=== PATIENT | male | born 1950 | race Caucasian/White ===

== ENCOUNTER 2017-06-09 16:41 | Inpatient (IN) | payer OTHER ==
--- NOTE | 2017-06-09 17:00 | EDPHY ---
H & P Stated Complaint: cough/fever/hypoxia Time Seen by Provider: 06/09/17 17:00 - Personal History Current Tetanus/Diphtheria Vaccine: Yes - Medical/Surgical History Hx Asthma: No Hx Chronic Respiratory Disease: No Hx Diabetes: No Hx Cardiac Disease: No Hx Renal Disease: No Hx Cirrhosis: No Hx Alcoholism: No Hx HIV/AIDS: No Hx Splenectomy or Spleen Trauma: No Other PMH: bronchitis - Social History Smoking Status: Never smoked Constitutional: Initial Vital Signs Temperature (C) 37.6 C 06/09/17 16:46 Heart Rate 77 06/09/17 16:46 Respiratory Rate 18 06/09/17 16:46 Blood Pressure 131/77 H 06/09/17 16:46 O2 Sat (%) 86 L 06/09/17 16:46 O2 Delivery Mode Room Air O2 (L/minute) 2 Allergies/Adverse Reactions: No Known Allergies Allergy (Unverified 06/09/17 16:45) Home Medications: Medication Instructions Recorded Acetaminophen [Tylenol 325mg (*)] 650 mg PO Q6 PRN 06/09/17 Albuterol [Proventil Inhaler HFA 1 - 2 puffs IH Q4H 06/09/17 (*)] Aspirin EC [Aspirin EC 81 mg (*)] 81 mg PO HS 06/09/17 Atorvastatin Calcium [Lipitor 20 20 mg PO HS 06/09/17 mg (*)] Azithromycin [Zithromax] 250 mg PO DAILY 06/09/17 Beclomethasone Qvar 80 [Qvar 80 1 puffs IH BIDI 06/09/17 (*)] HYDROcodone BIT/HOMATROP ME-BR 5 ml PO HS PRN 06/09/17 [Hydrocodone-Homatropine Soln] Herbals/Supplements -Info Only 1 ea PO DAILY 06/09/17 Multivitamins [Multivitamin (*)] 1 each PO DAILY 06/09/17 Nasonex 1 spray NASAL DAILY PRN 06/09/17 predniSONE [predniSONE TAPER] 1 each PO .EDIT DOSE INSTRUCT 06/09/17 Medical Decision Making - Diagnostics Imaging Results: Imaging Impressions Chest X-Ray 06/09/17 17:35 Impression: Patchy infiltrate in the right middle and lower lobe suspicious for pneumonia.. Imaging: I viewed and interpreted images myself ED Course/Re-evaluation: CHIEF COMPLAINT: Cough, fever HISTORY OF PRESENT ILLNESS: The patient is a 67 y/o male complaining of a cough and fever onset 5 days ago. Normally when he has a cough he develops bronchitis. Dr. Abraham, his PCP, prescribed him albuterol, azithromycin, prednisone, and Qvar, 3 days ago. His symptoms worsened and his fever spiked to 103 degrees today. He has not had a chest x-ray yet. Denies using home oxygen. Received influenza vaccination this year. No chest pain, abdominal pain, urinary or bowel complaints, numbness. REVIEW OF SYSTEMS: A 10 point review of systems was performed and is negative with the exception of the elements mentioned in the history of present illness. PHYSICAL EXAM: HR, BP, O2 Sat, RR. Temp noted General Appearance: Alert, well hydrated, appropriate, and non-toxic appearing. Head: Atraumatic without scalp tenderness or obvious injury Eyes: Pupils equal, round, reactive to light and accommodation, EOMI, no trauma , no injection. Ears: Clear bilaterally, no perforation, normal landmarks Nose: Atraumatic, no rhinorrhea, clear. Throat: There is no erythema or exudates, no lesions, normal tonsils, mucus membranes moist. Neck: Supple, nontender, no lymphadenopathy. Respiratory: Coarse rhonchi in all [place]. No retractions, no distress, no wheezes, and no accessory muscle use. Cardiovascular: Regular rate and rhythm, no murmurs, rubs, or gallops. Good capillary refill all extremities. Gastrointestinal: Abdomen is soft, nontender, non-distended, no masses, no rebound, no guarding, no peritoneal signs. Musculoskeletal: Normal active ROM of all extremities, atraumatic. Neurological: Alert, appropriate, and interactive. Non-focal neuro Skin: No rashes, good turgor, no nodules on palpation. Past medical history: Bronchitis Past surgical history: Denies Family history: Denies Social history: at bedside, lives in [place], retired DIAGNOSTICS/PROCEDURES/CRITICAL CARE TIME: Chest X-ray: Right middle lobe infiltrate DIFFERENTIAL DIAGNOSIS: The differential diagnosis for the patient's shortness of breath and hypoxemia included but was not limited to pneumonia, myocardial infarction, acute mountain sickness, high altitude pulmonary edema, congestive heart failure, and pulmonary embolus. MEDICAL DECISION MAKING: The patient is a 67 y/o male presenting with hypoxia and a cough, onset 5 days ago. At triage his O2Sats were 86% and on exam he has coarse rhonchi in all lung [place]. Chest X-ray ordered. DuoNeb administered. 1816: Reviewed patient's chest x-ray; there is a right middle lobe infiltrate. Patient is also positive for influenza A. He will need to be admitted for further observation. 182: Reassessed patient and discussed plan for admission; he is comfortable with this plan. 1849: Consulted with hospitalist service, Dr. Lawson accepts admission of this patient. - Data Points Laboratory Results: 06/09/17 17:07 Nasal Influenza A PCR FLU A DETECTED H (NEGATIVE) Nasal Influenza B PCR NEGATIVE FOR FLU B (NEGATIVE) RSV (PCR) NEGATIVE FOR RSV (NEGATIVE) Medications Given: Discontinued Medications Albuterol/Ipratropium (Duoneb) 3 ml IH EDNOW ONE Stop: 06/09/17 17:35 Last Admin: 06/09/17 17:40 Dose: 3 ml Departure - Departure Disposition: [facility] Inpatient Acute Clinical Impression: Influenza A, Hypoxia Condition: Fair Referrals: Parviz Abraham MD [Primary Care Provider] - As per Instructions Report Scribed for: Deandre Delaney Report Scribed by: Esha Dominguez Date of Report: 06/09/17 Time of Report: 17:29
[2017-06-09] MEDS ORDERED: IPRATROPIUM/ALBUTEROL 3 ML DEYVIAL IH ONE (17:34)
[2017-06-09] MEDS ORDERED: IPRATROPIUM/ALBUTEROL 3 ML DEYVIAL ONE (17:35)
[2017-06-09] MEDS ORDERED: ONDANSETRON DISINTEGRATING 4 MG TAB PO PRN (21:51)
[2017-06-09] MEDS ORDERED: ALBUTEROL 3 ML DEYVIAL IH PRN (21:51)
[2017-06-09] MEDS ORDERED: ACETAMINOPHEN 325 MG TAB PO PRN (21:51)
[2017-06-09] MEDS ORDERED: ONDANSETRON 4 MG/2 ML VIAL IVP PRN (21:51)
[2017-06-09] MEDS ORDERED: HYDROCODONE/HOMATROPINE HYCODAN 5 ML UDL PO PRN (21:53)
[2017-06-09] MEDS ORDERED: FLUTICASONE NASAL 120 SPRAYS/16 GM MDI EACHNARE PRN (21:53)
[2017-06-09] MEDS ORDERED: HYDROCODONE PO PRN (21:53)
[2017-06-09] MEDS ORDERED: HOMATROPINE PO PRN (21:53)
[2017-06-09] MEDS ORDERED: predniSONE 20 MG TAB PO ONE (22:01)
[2017-06-09] MEDS: guaiFENesin 600 MG TAB.ER PO SCH (22:31)
[2017-06-09] MEDS: OSELTAMIVIR PHOSPHATE 75 MG CAP PO SCH (22:33)
--- NOTE | 2017-06-09 22:36 | PDGENHP ---
History and Physical - Chief Complaint cough, fever - History of Present Illness 67 yo male with h/o RAD presents to ED with cough, wheezing, SOB and fever. His symptoms started 5 days [employer]. He saw his PCP and was started on QVAR, Albuterol, oral Prednisone 40 mg x1 day, then 20 mg daily (current dose), along with Azithromycin. He reports getting bronchitis and wheezing when he has a viral URI. No tobacco history or h/o asthma. He felt better 2 days ago, but then yesterday, his condition worsened with increased cough, SOB and return of fever. In the ED, a CXR was concerning for RML and RLL PNA. He is admitted for further management. History Information - Allergies/Home Medication List Allergies/Adverse Reactions: No Known Allergies Allergy (Unverified 06/09/17 16:45) Home Medications: Acetaminophen [Tylenol 325mg (*)] 650 mg PO Q6 PRN 06/09/17 [Last Taken 06/09/17 ] Albuterol [Proventil Inhaler HFA (*)] 1 - 2 puffs IH Q4H 06/09/17 [Last Taken ] Aspirin EC [Aspirin EC 81 mg (*)] 81 mg PO HS 06/09/17 [Last Taken 06/08/17] Atorvastatin Calcium [Lipitor 20 mg (*)] 20 mg PO HS 06/09/17 [Last Taken ] Azithromycin [Zithromax] 250 mg PO DAILY 06/09/17 [Last Taken 06/09/17] Beclomethasone Qvar 80 [Qvar 80 (*)] 1 puffs IH BIDI 06/09/17 [Last Taken ] HYDROcodone BIT/HOMATROP ME-BR [Hydrocodone-Homatropine Soln] 5 ml PO HS PRN [Last Taken 06/09/17] Herbals/Supplements -Info Only 1 ea PO DAILY 06/09/17 [Last Taken Unknown] Multivitamins [Multivitamin (*)] 1 each PO DAILY 06/09/17 [Last Taken Unknown] Nasonex 1 spray NASAL DAILY PRN 06/09/17 [Last Taken Unknown] predniSONE [predniSONE TAPER] 1 each PO .EDIT DOSE INSTRUCT 06/09/17 [Last Taken 06/09/17] I have personally reviewed and updated: family history, medical history, social history, surgical history - Past Medical History Additional medical history: RAD. recurrent bronchitis - Surgical History Reports: no pertinent surgical hx - Family History Positive for: non-pertinent - Social History Smoking Status: Never smoked Alcohol Use: Other (1-2 drinks a day) Drug Use: None Additional social history: Lives independently Review of Systems Review of Systems: ROS: 10pt was reviewed & negative except for what was stated in HPI & below Physical Exam Physical Exam: Temp Pulse Resp BP Pulse Ox 37.4 C 64 16 127/72 H 93 06/09/17 20:02 06/09/17 20:02 06/09/17 20:02 06/09/17 20:02 06/09/17 20:02 O2 (L/minute) 3 Constitutional: no apparent distress Eyes: PERRL Ears, Nose, Mouth, Throat: moist mucous membranes Cardiovascular: regular rate and rhythym Respiratory: no respiratory distress, expiratory wheeze, inspiratory crackles Gastrointestinal: normoactive bowel sounds, soft, non-tender abdomen Skin: warm Musculoskeletal: full muscle strength Neurologic: AAOx3 Psychiatric: interacting appropriately Lab Data & Imaging Review 06/09/17 22:25 06/09/17 22:25 Nasal Influenza A PCR FLU A DETECTED (NEGATIVE) H 06/09/17 17:07 Nasal Influenza B PCR NEGATIVE FOR FLU B (NEGATIVE) 06/09/17 17:07 RSV (PCR) NEGATIVE FOR RSV (NEGATIVE) 06/09/17 17:07 Visualized and Interpreted Chest x-ray results: Yes Chest X-Ray results: infiltrate Assessment & Plan Assessment: Acute hypoxemic respiratory failure secondary to Influenza A +/- PNA - Start Tamiflu, nebs, increase Prednisone to 40 mg daily given wheezing. Given concern for PNA, check cbc, bmp (labs currently pending). He does not appear septic. Finish Azithromycin, last dose tomorrow. Add Ceftriaxone for possible secondary bacterial PNA. Check PCT. If negative, could consider stopping Ceftriaxone. Further supportive care with guaifenesin, anti-tussives. Wean O2 as able. Full code Dispo - obs
[2017-06-09 22:43] LABS: PLATELET COUNT 151 10^3/uL (150-400)
[2017-06-09] MEDS: BECLOMETHASONE QVAR 80 MDI IH SCH (23:43)
[2017-06-09] MEDS ORDERED: NS 1,000 ML IV SCH (23:45)
[2017-06-10] MEDS: BECLOMETHASONE QVAR 80 MDI IH SCH ×2 (04:48→21:12)
[2017-06-10] MEDS: BENZONATATE 100 MG CAP PO PRN ×2 (05:38→18:02)
[2017-06-10] MEDS ORDERED: AZITHROMYCIN 250 MG TAB PO SCH (09:00)
[2017-06-10] MEDS ORDERED: predniSONE 20 MG TAB PO SCH (09:00)
[2017-06-10] MEDS: OSELTAMIVIR PHOSPHATE 75 MG CAP PO SCH ×2 (09:41→18:02)
[2017-06-10] MEDS: predniSONE 20 MG TAB PO SCH (09:41)
[2017-06-10] MEDS: guaiFENesin 600 MG TAB.ER PO SCH ×2 (09:41→21:27)
--- NOTE | 2017-06-10 12:41 | HOSPPROG ---
Hospitalist Progress Note Assessment/Plan: Patient is a 67-year-old male who has reactive airway disease. He presented the emergency room with cough wheezing and shortness of breath as well as a fever. He saw his primary care provider prior to this admission was started on prednisone albuterol and azithromycin. In the ER his chest x-ray was concerning for right middle lobe and right lower lobe pneumonia he was admitted for further care. Today is my 1st encounter with the patient chart reviewed. * acute hypoxemic respiratory failure -multifactorial, due to influenza a and likely a pneumonia -PCR is elevated at 0.34 indicating he likely has a local bacterial infection -on azithromycin, ceftriaxone added -continues to be on 2-3 L of oxygen -will ask nursing staff to do a room air challenge *influenza A with significant coughing -add cough syrup *pneumonia -cont ceftriaxone and azithromycin -patient has significant rhonchi especially noted on right side *Plan: cont current treatment, patient will require another midnight stay for treatment, still hypoxic, and requiring iv antibiotics Subjective: Bryson is not feeling much better today. Objective: Vital Signs Temp Pulse Resp BP Pulse Ox 36.6 C 68 16 148/69 H 95 06/10/17 08:00 06/10/17 08:00 06/10/17 08:00 06/10/17 08:00 06/10/17 08:00 Laboratory Results 06/09/17 22:25 06/10/17 04:40 06/09/17 06/10/17 06/11/17 05:59 05:59 05:59 Intake Total 425 50 Balance 425 50 - Physical Exam Constitutional: appears nourished, not in pain Eyes: PERRL Ears, Nose, Mouth, Throat: hearing normal Cardiovascular: regular rate and rhythym Respiratory: no respiratory distress, expiratory wheeze, rhonchi (scattered through right upper and middle lobe and left middle lobe area) Gastrointestinal: normoactive bowel sounds Skin: warm Musculoskeletal: full muscle strength Neurologic: AAOx3 Psychiatric: interacting appropriately ICD10 Worksheet Patient Problems: Problems Problem Status Onset Hypoxia Acute Influenza A Acute
--- NOTE | 2017-06-10 14:36 | PDMN ---
Medical Necessity Medical necessity: Change to IP, as of 06/10/17, per [employer]; los >2 mn for ongoing management of acute hypoxemic respiratory failure r/t influenza A & pneumonia; admit for further monitoring, supportive care & IV abx; hx reactive airway disease; per progress note & order 06/10/17
[2017-06-10] MEDS ORDERED: ALBUTEROL 60 PUFFS/8 GM MDI IH PRN (15:07)
[2017-06-10] MEDS: guaiFENesin/CODEINE PHOS 10 ML UDCUP PO PRN (15:31)
[2017-06-10 15:59] VITALS: RESP 16
[2017-06-10] MEDS ORDERED: ASPIRIN EC 81 MG TAB PO SCH (21:00)
[2017-06-10] MEDS ORDERED: ATORVASTATIN CALCIUM 20 MG TAB PO SCH (21:00)
[2017-06-10 21:21] VITALS: O2SAT 94
[2017-06-11] MEDS: guaiFENesin/CODEINE PHOS 10 ML UDCUP PO PRN (00:30)
--- NOTE | 2017-06-11 08:09 | HOSPPROG ---
Hospitalist Progress Note Assessment/Plan: Patient is a 67-year-old male who has reactive airway disease. He presented the emergency room with cough wheezing and shortness of breath as well as a fever. He saw his primary care provider prior to this admission was started on prednisone albuterol and azithromycin. In the ER his chest x-ray was concerning for right middle lobe and right lower lobe pneumonia he was admitted for further care. * acute hypoxemic respiratory failure -multifactorial, due to influenza a and pneumonia -PCR is elevated at 0.34 indicating he likely has a local bacterial infection -on azithromycin, ceftriaxone added -continues to be on 2-3 L of oxygen -will ask nursing staff to do a room air challenge *influenza A with significant coughing -better today *pneumonia -cont ceftriaxone and azithromycin *Plan: dc home if he does well on room air challenge. Subjective: Bryson is feeling much improved since yesterday. Objective: Vital Signs Temp Pulse Resp BP Pulse Ox 36.9 C 74 16 119/70 94 06/11/17 00:00 06/11/17 00:00 06/11/17 00:00 06/11/17 00:00 06/11/17 00:00 06/10/17 06/11/17 06/12/17 05:59 05:59 05:59 Intake Total 400 Balance 400 - Physical Exam Constitutional: no apparent distress, appears nourished, not in pain Eyes: PERRL Ears, Nose, Mouth, Throat: hearing normal Cardiovascular: regular rate and rhythym Respiratory: no respiratory distress, rhonchi (bibasilar, but lung sounds much improved since yesterday's assessment) Skin: warm Musculoskeletal: full muscle strength Neurologic: AAOx3 Psychiatric: interacting appropriately, not anxious ICD10 Worksheet Patient Problems: Problems Problem Status Onset Hypoxia Acute Influenza A Acute
[2017-06-11] MEDS: predniSONE 20 MG TAB PO SCH (08:23)
[2017-06-11] MEDS: guaiFENesin 600 MG TAB.ER PO SCH (08:23)
[2017-06-11] MEDS: OSELTAMIVIR PHOSPHATE 75 MG CAP PO SCH (08:23)
[2017-06-11 08:36] VITALS: BP 132/68; PULSE 72; TEMP 98.6
[2017-06-11] MEDS ORDERED: BECLOMETHASONE QVAR 80 MDI IH SCH (09:00)
[2017-06-11] MEDS ORDERED: AZITHROMYCIN 250 MG TAB PO SCH (09:00)
--- NOTE | 2017-06-11 10:15 | GDS ---
[f rep st] DISCHARGE SUMMARY DISCHARGE DIAGNOSES: 1. Influenza A. 2. Pneumonia. 3. Acute hypoxemic respiratory failure. HOSPITAL COURSE: Briefly, the patient is a 67-year-old male who has reactive airway disease. He presented to the emergency room with cough, wheezing, and shortness of breath, as well as a fever. He saw his primary care prior to this admission and was started on prednisone, albuterol, and azithromycin. He had a chest x-ray that was performed, was concerning for right middle lobe and right lower lobe pneumonia. He was treated for the flu and for pneumonia. He is markedly better. His oxygen levels are stable on room air. He will be discharged home and further follow up with his primary care provider. HOSPITAL COURSE: 1. Influenza A. Will continue full treatment with the Tamiflu. 2. Acute hypoxemic respiratory failure. This is due to influenza plus pneumonia. His procalcitonin was elevated at 0.34, indicating he likely has a bacterial infection. 3. Pneumonia. Will continue him on Levaquin for 4 more days. DISCHARGE CONDITION: Stable. Blood pressure is 132/68. Heart rate is 72. Respiratory rate is 16. O2 sats on room air 94%. Temperature is 37 degrees Celsius. DISCHARGE MEDICATIONS: Please see the EMR. DISCHARGE INSTRUCTIONS: 1. To continue a short burst treatment of prednisone for the next 4 days. 2. Continue Levaquin for 4 more days. Continue 6 more doses of Tamiflu. 3. To get a repeat chest x-ray in 6 weeks to be sure he has resolution of his pneumonia. 4. 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 He has a history of ongoing lung issues. Greater than 30 minutes discharging and coordinating his care. /[id number]/MODL MTDD
== END 2017-06-11 10:57 | disposition home or self-care (01) | DRG 193 ==
LOC: F3N 19:49 → OBSVTOIN 06-10 14:05
PROVIDERS: ADMIT Hospitalist; ATTEND Hospitalist
DX: J11.08 Influenza due to unidentified influenza virus with specified pneumonia (principal); J96.01 Acute respiratory failure with hypoxia
CPT/HCPCS: G0378; J0696; J7512; J7613